=== PATIENT | male | born 1965 | race Caucasian/White ===

== ENCOUNTER 2018-06-16 09:49 | Outpatient (CLI) | payer OTHER ==
[2018-06-16 13:02] LABS: ALBUMIN 4.5 g/dL (3.2-5.5); ALBUMIN/GLOBULIN RATIO 1.3 (1.0-2.2); ALKALINE PHOSPHATASE 93 IU/L (42-121); ALT ALANINE AMINOTRANSFERASE 26 IU/L (10-60); AST ASPARTATE AMINOTRANSFERASE 31 IU/L (10-42); BILIRUBIN,TOTAL 0.6 mg/dL (0.2-1.0); BUN - BLOOD UREA NITROGEN 13 mg/dL (6-20); CARBON DIOXIDE - CO2 26 mmol/L (21-32); CHLORIDE 103 mmol/L (101-111); CHOL/HDL RATIO 4.7 (<5.0); CHOLESTEROL 192 mg/dL; CREATININE 0.9 mg/dL (0.6-1.2); GFR - MDRD 88 (>89); GLUCOSE 97 mg/dL (70-100); HDL CHOLESTEROL 41 mg/dL; LDL CHOLESTEROL,CALCULATED 120 mg/dL; LDL/HDL RATIO 2.9 (<3.6); SODIUM 136 mmol/L (135-145); TOTAL PROTEIN 7.9 g/dL (6.7-8.2); VLDL CHOLESTEROL 31 mg/dL
== END 2018-06-16 23:59 | disposition home or self-care (01) ==
LOC: LAB.WCP 09:49
PROVIDERS: ATTEND Family Medicine
DX: Z00.00 Encounter for general adult medical examination without abnormal findings (principal); Z12.5 Encounter for screening for malignant neoplasm of prostate
CPT/HCPCS: 36415; 80053; 80061; 83721; 84153

== ENCOUNTER 2019-08-29 09:14 | Outpatient (CLI) | payer BC, OTHER ==
--- NOTE | 2019-08-29 16:12 | XRAY Report ---
Reason: LEFT HAND PAIN Procedure Date: 08/29/2019 Accession Number: [id number] / [id number] Procedure: WCP - Hand 3 View LT CPT Code: Final Report FULL RESULT: EXAM: LEFT HAND RADIOGRAPHY EXAM DATE: 08/29/2019 09:31 AM. CLINICAL HISTORY: LEFT HAND PAIN. COMPARISON: None. TECHNIQUE: 3 views. FINDINGS: Bones: Normal. No fractures or bone lesions. Joints: Normal. No subluxations. Soft Tissues: Normal. No soft tissue swelling. IMPRESSION: Normal left hand radiography. [facility]
== END 2019-08-29 23:59 | disposition home or self-care (01) ==
LOC: DI.WCP 09:14
PROVIDERS: ATTEND Family Medicine
DX: M79.642 Pain in left hand (principal)

== ENCOUNTER 2021-02-19 10:38 | Outpatient (CLI) | payer BC ==
[2021-02-19 18:30] LABS: BASOPHILS # (AUTO) 0.1 10^3/uL (0.0-0.1); EOSINOPHILS # (AUTO) 0.1 10^3/uL (0.0-0.7); EOSINOPHILS % (AUTO) 2.8 %; HGB - HEMOGLOBIN 14.6 g/dL (14.0-18.0); LYMPHOCYTES # (AUTO) 1.5 10^3/uL (1.5-3.5); LYMPHOCYTES % (AUTO) 30.7 %; MEAN CORPUSCULAR HEMOGLOBIN 31.2 pg (27.0-31.0); MEAN CORPUSCULAR HGB CONC 32.4 g/dL (32.0-36.0); MEAN CORPUSCULAR VOLUME 96.2 fL (80.0-94.0); MEAN PLATELET VOLUME 10.6 fL (7.4-11.4); MONOCYTES # (AUTO) 0.4 10^3/uL (0.0-1.0); MONOCYTES % (AUTO) 7.2 %; NEUTROPHILS # (AUTO) 2.9 10^3/uL (1.5-6.6); NEUTROPHILS % (AUTO) 58.1 %; PLT - PLATELET COUNT 395 10^3/uL (130-450); RED BLOOD COUNT 4.68 10^6/uL (4.70-6.10)
[2021-02-19 19:13] LABS: ALBUMIN 4.5 g/dL (3.2-5.5); ALBUMIN/GLOBULIN RATIO 1.4 (1.0-2.2); BILIRUBIN,TOTAL 0.7 mg/dL (0.2-1.0); CALCIUM 9.4 mg/dL (8.5-10.3); POTASSIUM 4.6 mmol/L (3.5-5.0); TOTAL PROTEIN 7.7 g/dL (6.7-8.2)
[2021-02-19 19:27] LABS: THYROID STIMULATING HORMONE 1.48 uIU/mL (0.34-5.60)
[2021-02-19 19:51] LABS: RHEUMATOID FACTOR NEGATIVE (Negative)
[2021-02-21 20:56] LABS: ANA PATTERN Nuclear, Homogeneous; ANA SCREEN POSITIVE (NEGATIVE)
== END 2021-02-19 10:39 | disposition home or self-care (01) ==
LOC: LAB.N 10:38
PROVIDERS: ATTEND Family Medicine
DX: M12.839 Other specific arthropathies, not elsewhere classified, unspecified wrist (principal); M19.049 Primary osteoarthritis, unspecified hand; I10 Essential (primary) hypertension
CPT/HCPCS: 36415; 80053; 84443; 85025; 85027; 85651; 86038; 86430

== ENCOUNTER 2021-02-19 10:43 | Outpatient (CLI) | payer BC ==
--- NOTE | 2021-02-19 16:19 | XRAY Report ---
PROCEDURE: Wrist 4 View BILAT INDICATIONS: BILATERAL TENDERNESS AT 2ND CARPAL MC JOINT TECHNIQUE: 4 views of the wrist were acquired. COMPARISON: None FINDINGS: Bones: No fractures or dislocations. No suspicious bony lesions. Mild bilateral first CMC degenera tive narrowing left greater than right suggestive early arthritic change. Scaphoid view: No visualized scaphoid fracture. Soft tissues: No suspicious soft tissue calcifications. IMPRESSION: No visualized acute fracture or dislocation. However, occult injury cannot be excluded. Recommend braden rt interval imaging follow-up in 7-10 days as clinically indicated for additional evaluation. Reviewed by: Madelaine Castrejon MD on 02/19/2021 4:18 PM PDT Approved by: Madelaine Castrejon MD on 02/19/2021 4:18 PM PDT Station ID: [id number]
== END 2021-02-19 10:44 | disposition home or self-care (01) ==
LOC: DI.N 10:43
PROVIDERS: ATTEND Family Medicine
DX: M12.531 Traumatic arthropathy, right wrist (principal); M12.532 Traumatic arthropathy, left wrist; M19.049 Primary osteoarthritis, unspecified hand; I10 Essential (primary) hypertension
CPT/HCPCS: 36415; 80053; 84443; 85025; 85027; 85651; 86038; 86430

== ENCOUNTER 2021-09-28 09:34 | Outpatient (CLI) | payer BC ==
[2021-09-28 12:20] LABS: BASOPHILS % (AUTO) 0.8 %; EOSINOPHILS # (AUTO) 0.1 10^3/uL (0.0-0.7); EOSINOPHILS % (AUTO) 1.8 %; HCT - HEMATOCRIT 43.2 % (42.0-52.0); HGB - HEMOGLOBIN 14.9 g/dL (14.0-18.0); LYMPHOCYTES # (AUTO) 1.3 10^3/uL (1.5-3.5); LYMPHOCYTES % (AUTO) 33.9 %; MEAN CORPUSCULAR HGB CONC 34.5 g/dL (32.0-36.0); MEAN CORPUSCULAR VOLUME 92.7 fL (80.0-94.0); MEAN PLATELET VOLUME 10.3 fL (7.4-11.4); MONOCYTES # (AUTO) 0.3 10^3/uL (0.0-1.0); MONOCYTES % (AUTO) 7.9 %; NEUTROPHILS # (AUTO) 2.1 10^3/uL (1.5-6.6); NEUTROPHILS % (AUTO) 55.3 %; PLT - PLATELET COUNT 316 10^3/uL (130-450); RED BLOOD COUNT 4.66 10^6/uL (4.70-6.10); WHITE BLOOD COUNT 3.8 x10^3/uL (4.8-10.8)
[2021-09-28 12:49] LABS: THYROID STIMULATING HORMONE 1.6 uIU/mL (0.34-5.60)
[2021-09-28 12:55] LABS: ALBUMIN 4.5 g/dL (3.2-5.5); ALBUMIN/GLOBULIN RATIO 1.4 (1.0-2.2); ALKALINE PHOSPHATASE 67 IU/L (42-121); ALT ALANINE AMINOTRANSFERASE 21 IU/L (10-60); AST ASPARTATE AMINOTRANSFERASE 23 IU/L (10-42); BILIRUBIN,TOTAL 0.8 mg/dL (0.2-1.0); BUN - BLOOD UREA NITROGEN 22 mg/dL (6-20); CALCIUM 9.6 mg/dL (8.5-10.3); CARBON DIOXIDE - CO2 30 mmol/L (21-32); CHLORIDE 102 mmol/L (101-111); CHOL/HDL RATIO 3.1 (<5.0); CHOLESTEROL 234 mg/dL; GFR - MDRD 77 (>89); GLUCOSE 103 mg/dL (70-100); HDL CHOLESTEROL 76 mg/dL; LDL CHOLESTEROL,CALCULATED 143 mg/dL; LDL/HDL RATIO 1.9 (<3.6); POTASSIUM 4.7 mmol/L (3.5-5.0); SODIUM 139 mmol/L (135-145); TOTAL PROTEIN 7.8 g/dL (6.7-8.2); TRIGLYCERIDES 73 mg/dL; VLDL CHOLESTEROL 15 mg/dL
[2021-09-28 13:07] LABS: BILIRUBIN,DIRECT < 0.1 mg/dL (0.1-0.5)
== END 2021-09-28 09:35 | disposition home or self-care (01) ==
LOC: LAB.N 09:34
PROVIDERS: ATTEND Internal Medicine
DX: B35.1 Tinea unguium (principal); I10 Essential (primary) hypertension; Z12.5 Encounter for screening for malignant neoplasm of prostate; E78.5 Hyperlipidemia, unspecified; F32.A Depression, unspecified
CPT/HCPCS: 36415; 80053; 80061; 80076; 83721; 84153; 84443; 85025

== ENCOUNTER 2021-09-28 09:47 | Outpatient (CLI) | payer BC ==
--- NOTE | 2021-09-28 14:35 | XRAY Report ---
PROCEDURE: Hand 3 View BILAT INDICATIONS: ARTHRITIS, BILATERAL HANDS TECHNIQUE: 2 views of both hands were acquired. COMPARISON: None FINDINGS: Bones: No fractures or dislocations. No significant degenerative changes. No erosions or evidence o f inflammatory arthropathy. No suspicious bony lesions. Soft tissues: No suspicious soft tissue calcifications. IMPRESSION: 1. No acute abnormality. 2. No radiographic evidence of inflammatory arthropathy. 3. No significant degenerative changes. Reviewed by: Anders Oliva on 09/28/2021 2:33 PM PDT Approved by: Anders Oliva on 09/28/2021 2:33 PM PDT Station ID: [id number]
== END 2021-09-28 09:48 | disposition home or self-care (01) ==
LOC: DI.N 09:47
PROVIDERS: ATTEND Internal Medicine
DX: M19.042 Primary osteoarthritis, left hand (principal); M19.041 Primary osteoarthritis, right hand; B35.1 Tinea unguium; I10 Essential (primary) hypertension; Z12.5 Encounter for screening for malignant neoplasm of prostate; F32.A Depression, unspecified; E78.5 Hyperlipidemia, unspecified
CPT/HCPCS: 36415; 80053; 80061; 80076; 83721; 84153; 84443; 85025

== ENCOUNTER 2022-07-06 16:46 | Outpatient (CLI) | payer BC ==
--- NOTE | 2022-07-07 16:50 | CT Report ---
PROCEDURE: Low Dose Lung Cancer Screen INDICATIONS: HIST OF SMOKING TECHNIQUE: Noncontrast low-dose axial images were acquired from the pulmonary apices to the posterior costophren ic angles. Multiplanar MIP reformats were then reconstructed. For radiation dose reduction, the follo wing was used: automated exposure control, adjustment of mA and/or kV according to patient size. COMPARISON: None. FINDINGS: Image quality: Excellent. Lungs and pleura: No discrete pulmonary nodule is seen. Biapical scarring is noted. Scattered scarri ng/atelectasis in periphery of bilateral lower lung huitron are also seen. No acute air space opacitie s. No pleural effusion or pneumothorax. Central and peripheral airway is patent. Mediastinum: Heart size is normal. No pericardial effusion. No significant atherosclerotic disease. No mediastinal adenopathy by size criteria. Thoracic aorta and central pulmonary arteries are marina l in size. Esophagus is normal in caliber. No hiatal hernia. Bones and chest wall: No suspicious bony lesions. No vertebral body compression fractures. Degener ative disc disease throughout thoracic spine is seen. No axillary or supraclavicular adenopathy by si ze criteria. The thyroid is normal in size and there are no incidental findings. Abdomen: Visualized upper abdomen solid organs and bowel loops appear normal in the absence of contr ast. Gallbladder is surgically absent. IMPRESSION: 1. No discrete pulmonary nodule is noted. Biapical scarring and bilateral lower lung field scattered atelectasis. No focal infiltrate, pleural effusion or pneumothorax. Airway is patent. 2. No mediastinal or hilar lymphadenopathy by size criteria. No significant atherosclerotic disease. Lung RADS category: 1, negative. Annual low dose screening CT chest follow-up is recommended as long as patient meets the criteria. CLINICAL RECOMMENDATION STATEMENTS: In patients <35 years with an ITN detected on CT, MRI, or extrathyroidal ultrasound, the Committee re commends further evaluation with dedicated thyroid ultrasound if the nodule is "e1 cm and has no susp icious imaging features, and if the patient has normal life expectancy. In patients "e35 years with an ITN detected on CT, MRI, or extrathyroidal ultrasound, the Committee r ecommends further evaluation with dedicated thyroid ultrasound if the nodule is "e1.5 cm and has no s uspicious imaging features, and if the patient has normal life expectancy. (ACR, 2014) Reviewed by: Saturnino Bishop MD on 07/07/2022 4:49 PM PST Approved by: Saturnino Bishop MD on 07/07/2022 4:49 PM PST Station ID: [id number]
== END 2022-07-06 16:47 | disposition home or self-care (01) ==
LOC: DI 16:46
PROVIDERS: ATTEND Internal Medicine
DX: Z12.2 Encounter for screening for malignant neoplasm of respiratory organs (principal); J98.11 Atelectasis; Z87.891 Personal history of nicotine dependence

== ENCOUNTER 2023-09-14 11:47 | Outpatient (CLI) | payer BC ==
--- NOTE | 2023-09-14 12:59 | CT Report ---
PROCEDURE: Lung Cancer Screen INDICATIONS: HIST OF SMOKING TECHNIQUE: A CT scan of the chest was performed. Intravenous contrast media was not administered. Images were re corded and evaluated at appropriate window settings. Reformats: axial MIP of the chest, coronal and s agittal. For radiation dose reduction, the following was used: automated exposure control, adjustment of mA and/or kV according to patient size. COMPARISON: 07/06/2022 FINDINGS: Image quality: Excellent. Prior cancer history: Unsure. Lungs and pleura: No pleural effusions. No pneumothorax. No suspicious pulmonary nodules which requi re follow up. Mediastinum: Heart size is normal. No pericardial effusion. No large vessel abnormality. No mediastin al adenopathy by size criteria. Chest wall and lower neck: Thyroid is unremarkable. No axillary or supraclavicular adenopathy by size . Bones: No aggressive osseous abnormality. Upper Abdomen: Unremarkable. IMPRESSION: Lung RAD: 1 - Negative. Recommendation: Continue annual screening in 12 Months with LDCT Non-Lung Significant Findings: None. Reviewed by: David Mullins MD on 09/14/2023 12:58 PM PDT Approved by: David Mullins MD on 09/14/2023 12:58 PM PDT Station ID: [id number]
== END 2023-09-14 11:48 | disposition home or self-care (01) ==
LOC: DI 11:47
PROVIDERS: ATTEND Internal Medicine
DX: Z12.2 Encounter for screening for malignant neoplasm of respiratory organs (principal); Z87.891 Personal history of nicotine dependence